=== PATIENT | male | born 1950 | race Caucasian/White ===

== ENCOUNTER → 2019-02-07 10:46 | Outpatient (CLI) | payer MEDICARE, OTHER | END | disposition home or self-care (01) | LOC: D.CT 10:46 | PROVIDERS: ATTEND Family Medicine | DX: I70.213 Atherosclerosis of native arteries of extremities with intermittent claudication, bilateral legs (principal) ==

== ENCOUNTER → 2019-07-23 10:48 | Outpatient (CLI) | payer MEDICARE, OTHER ==
--- NOTE | ~2019-07-23 | EC ---
PATIENT:DARLING BARRAGAN DATE OF SERVICE: 07/23/19 SEX: M MEDICAL RECORD: [id number] DATE OF : 46 LOCATION:[facility] AGE OF PATIENT: 68 ADMISSION DATE: 07/23/19 REFERRING PHYSICIAN: INTERPRETING PHYSICIAN: KAIN PARRISH MD ECHOCARDIOGRAM REPORT ECHO CHARGES 4 ECHO COMPLETE Date: 07/23/19 CLINICAL DIAGNOSIS: MR H/O A-FIB/HTN ECHOCARDIOGRAPHIC MEASUREMENTS (adult normal given) AC root (d.<3.7cm) 3.8 cm LV Septum d (<1.2 cm> 1.6 cm Valve Excursion 2.2 cm LV Septum (systole) 2.1 cm Left Atria (s.<4.0cm> 3.9 cm LVPW d(<1.2cm) 1.3 cm RV (d.<2.3cm) 3.0 cm LVPW (sytole) 1.9 cm LV diastole(<5.6CM) 6.1 cm MV E-F(>70mm/sec) cm LV systole 4.4 cm LVOT Diameter 2.1 cm MV exc.(>10mm) cm Est.ejection fraction (50-75%) % DOPPLER: LVIT cm/sec A cm/sec E 98.0 cm/sec LA cm/sec RVSP 34.0 mmHg LVOT 74.0 cm/sec AOP1/2T m/s Asc. Ao 100 cm/sec RVOT 54.0 cm/sec RA cm/sec PA 73.0 cm/sec AV Gradient Peak 4.0 mmHg AV Mean 2.2 mmHg AV Area 2.3 cm MV Gradient Peak 5.2 mmHg MV Mean 1.5 mmHg MV Area cm COMMENTS: OP - HC Business Solutions Architect: 1 FERNANDA MECHELLE Coconut Jelly Roller: 1 Dr. Parrish TAPE# PACS Pericardial Effusion N DATE OF SERVICE: FINDINGS: 1. Left ventricular chamber size is mildly dilated. Left ventricular systolic function is preserved at 50% to 55%. 2. Left atrium is within normal limits. Right atrium and right ventricular chamber sizes are moderately dilated. 3. Valvular structures have normal structure and motion. 4. Doppler interrogation reveals mild mitral regurgitation, mild tricuspid regurgitation, no other valvular insufficiency or stenosis. Pulmonary systolic ECHOCARDIOGRAM REPORT [id number] DARLING BARRAGAN pressure is estimated at 34 mmHg. 5. No evidence of pericardial effusion or left ventricular thrombus. TRANSINT:[id number] Voice Confirmation ID: [id number] DOCUMENT ID: [id number] KAIN PARRISH MD CC: [id number] DICTATION DATE: 07/24/19957 PICTURE ENLARGER: 07/24/19 1138 DEP CLI 07/23/19 [facility] [address] [id number]
== END | disposition home or self-care (01) ==
LOC: D.HCCECHO 10:48
PROVIDERS: ATTEND Internal Medicine Interventional Cardiology
DX: I42.9 Cardiomyopathy, unspecified (principal)

== ENCOUNTER 2020-01-08 10:47 | Inpatient (IN) | payer MEDICARE, OTHER ==
[~2020-01-08] VITALS: Ht 180.3 cm; Wt 122.5 kg
--- NOTE | ~2020-01-08 | EC ---
PATIENT:DARLING BARRAGAN DATE OF SERVICE: 01/08/20 SEX: M MEDICAL RECORD: [id number] DATE OF : [birth year] LOCATION:[facility] AGE OF PATIENT: 69 ADMISSION DATE: 01/08/20 REFERRING PHYSICIAN: INTERPRETING PHYSICIAN: LISA MAKI MD ECHOCARDIOGRAM REPORT ECHO CHARGES 4 ECHO COMPLETE Date: 01/11/20 CLINICAL DIAGNOSIS: CELLULITIS, AFIB ECHOCARDIOGRAPHIC MEASUREMENTS (adult normal given) AC root (d.<3.7cm) 2.8 cm LV Septum d (<1.2 cm> 0.7 cm Valve Excursion 1.4 cm LV Septum (systole) 1.3 cm Left Atria (s.<4.0cm> 4.2 cm LVPW d(<1.2cm) 0.9 cm RV (d.<2.3cm) 3.5 cm LVPW (sytole) 1.2 cm LV diastole(<5.6CM) 6.5 cm MV E-F(>70mm/sec) cm LV systole 5.0 cm LVOT Diameter 2.0 cm MV exc.(>10mm) cm Est.ejection fraction (50-75%) % DOPPLER: LVIT cm/sec A 79 cm/sec E cm/sec LA cm/sec RVSP 34.8 mmHg LVOT 74 cm/sec AOP1/2T m/s Asc. Ao 219 cm/sec RVOT 52 cm/sec RA cm/sec PA 74 cm/sec AV Gradient Peak 19.2 mmHg AV Mean 14.0 mmHg AV Area 0.7 cm MV Gradient Peak 4.1 mmHg MV Mean 2.4 mmHg MV Area cm COMMENTS: Dust Puller: Ilya MORENO Lithographic Artist: Emani Maki TAPE# PACS Pericardial Effusion N DATE OF SERVICE: PROCEDURE: Transthoracic echocardiogram. FINDINGS: 1. Left ventricle has areas of hyperkinesis with an overall ejection fraction of 55%. 2. The left atrium is moderately enlarged. 3. The aortic valve appears to be normal. The patient appears to be in atrial flutter. ECHOCARDIOGRAM REPORT [id number] DARLING BARRAGAN 4. Tricuspid valve has moderate tricuspid regurgitation with an RVSP of 35 mmHg. 5. Right ventricle is mildly enlarged. 6. The right atrium is mildly to moderately enlarged. 7. Pulmonic valve is grossly normal. 8. No pericardial effusion. There is no evidence of thrombus or vegetation on this echo. However, if there were other questions, transesophageal echocardiogram may be more reasonable procedure to eliminate that as a possibility. TRANSINT:[id number] Voice Confirmation ID: [id number] DOCUMENT ID: [id number] LISA MAKI MD CC: [id number] DICTATION DATE: 01/12/20 1102 COOK SOUP: 01/12/20 1554 ADM IN [facility] [address] [place] [address]
--- NOTE | 2020-01-08 11:20 | NUR ---
PT IN ROOM, SITUATED COMFORTABLY IN BED. FAMILY AT BEDSIDE. DENIES ANY NEEDS AT THIS TIME. WILL START IV AND GET PT IN A HOSPITAL GOWN. WILL CONTINUE TO MONITOR.
--- NOTE | 2020-01-08 11:51 | NUR ---
20 GAUGE IV STARTED TO THE LEFT FOREARM. NS @ 75.
--- NOTE | 2020-01-08 11:58 | NUR ---
STARTED IV ABX. RESTING COMFORTABLY. DENIES ANY NEEDS.
[2020-01-08 13:04] LABS: CALC OSMOLALITY 267 mosm/kg (275-300); CALCIUM 8.5 mg/dL (8.5-10.1); CARBON DIOXIDE 27.6 mmol/L (21.0-32.0); CHLORIDE - SERUM 98 mmol/L (98-107); GLUCOSE 122 mg/dL (74-106); HEMATOCRIT 29.5 % (42.0-54.0); HEMOGLOBIN 10.1 g/dL (13.5-17.5); MCH 32.9 pg (26.0-34.0); MCHC 34.2 g/dL (31.0-37.0); MCV 96.1 fL (80.0-100.0); PLATELET COUNT 270 10x3/uL (130-400); POTASSIUM - SERUM 3.2 mmol/L (3.5-5.1); RBC 3.07 10x6/uL (4.20-6.10); RDW 12.8 % (11.5-14.5); SODIUM 133 mmol/L (136-145); UREA NITROGEN 16 mg/dL (7-18); WBC 20.1 10x3/uL (4.8-10.8); eGFR NON AFRICAN AMERICAN 78 mL/min (90-120)
[2020-01-08 13:10] LABS: ALBUMIN 2.7 g/dL (3.4-5.0); ALKALINE PHOSPHATASE 118 U/L (30-120); ALT (SGPT) 36 U/L (10-68); PROTEIN - SERUM 7.9 g/dL (6.4-8.2)
[2020-01-08 13:31] VITALS: BP 99/76
[2020-01-08 14:21] LABS: LYMPHOCYTES 9 % (15-50); MONOCYTES 4 % (2-11); NEUTROPHILS 85 % (40-80); PLATELET ESTIMATE NORMAL
--- NOTE | 2020-01-08 14:46 | NUR ---
ADMINISTERED 40 MEQ OF POTASSIUM PER ELECTROLYTE PROTOCOL. RESECURED PT IV. SITTING UPRIGHT ON BED SIDE. REQUESTING PAIN MEDICAITON, WILL GET IN CONTACT WITH DOCTOR. DENIES ANY OTHER NEEDS. FAMILY AT BEDSIDE. WILL CONTINUE TO MONITOR.
--- NOTE | 2020-01-08 16:18 | NUR ---
ADMINISTERED STAT ORDERED MORPHINE DOSE, STARTED IV ABX. SET UP INSURANCE SOLICITOR MORPHINE. PT RESTING COMFORTABLY IN BED. FAMILY AT BEDSIDE. DENIES ANY NEEDS. BED IN LOWEST POSITION, BED RAILS X2, CALL LIGHT WITHIN REACH. WILL CONTINUE TO MONITOR.
[2020-01-08] MEDS ORDERED: LASIX40 MG PO (16:25)
[2020-01-08] MEDS ORDERED: COZAAR25 MG PO (16:26)
[2020-01-08] MEDS ORDERED: BETAPACE 120 M120 MG PO (16:26)
[2020-01-08] MEDS ORDERED: K-TAB10 MEQ PO (16:27)
[2020-01-08] MEDS ORDERED: XARELTO20 MG PO (16:28)
[2020-01-08 16:37] VITALS: BP 125/81
--- NOTE | 2020-01-08 18:38 | NUR ---
ADMINISTERD MEDICATION. RESTING COMFORTABLY IN BED. DENIES ANY NEEDS. BED IN LOWEST POSITION, BED RAILS X2, CALL LIGHT WITHIN REACH. WILL CONTINUE TO MONITOR.
[2020-01-08 20:00] VITALS: BP 119/73
[2020-01-09 04:00] VITALS: BP 114/70
[2020-01-09 05:27] LABS: BASOPHILS 0.3 % (0-2); EOSINOPHILS 0.9 % (0-7); HEMATOCRIT 34.7 % (42.0-54.0); HEMOGLOBIN 11.7 g/dL (13.5-17.5); IMMATURE GRANULOCYTES 0.5 % (0-5); MCH 32.3 pg (26.0-34.0); MCHC 33.7 g/dL (31.0-37.0); MCV 95.9 fL (80.0-100.0); MEAN PLATELET VOLUME 10.6 fL (7.4-10.4); MONOCYTES 8.7 % (2-11); NEUTROPHILS 76.6 % (40-80); RBC 3.62 10x6/uL (4.20-6.10)
[2020-01-09 05:38] LABS: PLATELET COUNT 200 10x3/uL (130-400); WBC 12.8 10x3/uL (4.8-10.8)
[2020-01-09 05:58] LABS: ALBUMIN 2.1 g/dL (3.4-5.0); ALKALINE PHOSPHATASE 87 U/L (30-120); BILIRUBIN - TOTAL 0.88 mg/dL (0.2-1.3); CALC OSMOLALITY 272 mosm/kg (275-300); CARBON DIOXIDE 28.8 mmol/L (21.0-32.0); CHLORIDE - SERUM 103 mmol/L (98-107); GLUCOSE 109 mg/dL (74-106); POTASSIUM - SERUM 3.6 mmol/L (3.5-5.1); PROTEIN - SERUM 6.1 g/dL (6.4-8.2); SODIUM 136 mmol/L (136-145); UREA NITROGEN 12 mg/dL (7-18); eGFR NON AFRICAN AMERICAN 78 mL/min (90-120)
[2020-01-09 06:05] LABS: ALT (SGPT) 25 U/L (10-68)
--- NOTE | 2020-01-09 06:43 | NUR ---
Pt resting in bed and has slept most of the night, no distress noted. Pt denies any needs at this time, call light in reach, bed in low position.
[2020-01-09 08:00] VITALS: BP 105/72
--- NOTE | 2020-01-09 09:00 | NUR ---
ALERT AND ORIETNED WITH ERRYTHEMA AND EDEMA NOTED TO RLE WITH PEDAL PULSES NOTED WITH SKIN HOT WITH SEROUS DRAIN AGE NOTED FROM LET KNEE. DILAUDID DRESS MARKER EFFECTIVE FOR PAIN MANAGEMENT. ENCOURAGED TO USE CALL LIGHT FOR ASSSIT.
[2020-01-09 12:00] VITALS: BP 93/63
--- NOTE | 2020-01-09 13:00 | NUR ---
PATIENT PREMEDICATED FOR SURGERY AND LEFT UNDER CARE OF SURGERY STAFF. EKG ON CHART. STABLE AT TIME OF DEPARTURE.
[2020-01-09 13:28] VITALS: BMI 37.6
[2020-01-09 15:07] VITALS: BP 118/91
[2020-01-09 15:26] VITALS: BP 118/61
[2020-01-09 15:59] LABS: NEUT - BF 79 %
[2020-01-09 20:00] VITALS: BP 163/107
--- NOTE | 2020-01-09 20:00 | NUR ---
PATIENT RESTING IN BED WATCHING TV. NO S/S OF ACUTE DISTRESS. NO C/O AT THIS TIME. PATIENT IS ON 2L OF O2. PATIENT HAS LEFT FOREARM IV, NORMAL SALINE @ 75 ML/HR AND MORPHINE LAP LAYER. IV IS PATENT WITHOUT REDNESS, SWELLING, OR TENDERNESS. PATIENT LEFT KNEE HAS ENDY BANDAGE AND WOUND VAC TO IT. LEFT LEG IS VERY RED AND EDEMATUS. PATIENT IS UP WITH ASSIST TO THE BATHROOM. CALL LIGHT WITHIN REACH. WILL CONTINUE TO MONITOR.
[2020-01-10] VITALS: BP 170/98
--- NOTE | 2020-01-10 01:30 | NUR ---
PATIENT IV INFILTRATED. IV TAKEN OUT AND CATHETER TIP INTACT. WILL ATTEMPT TO PLACE ANOTHER IV. CALL LIGHT WITHIN REACH. WILL CONTINUE TO MONITOR.
--- NOTE | 2020-01-10 02:00 | NUR ---
PATIENT HAS IV IN RIGHT FOREARM. IV IS PATENT WITHOUT REDNESS, SWELLING, OR TENDERNESS. CALL LIGHT WITHIN REACH. WILL CONTINUE TO MONITOR.
[2020-01-10 04:00] VITALS: BP 112/85
--- NOTE | 2020-01-10 04:05 | NUR ---
I have reviewed this patient and I concur with the Shift Assessment completed by the Licensed Practical Nurse today this shift.
[2020-01-10 06:55] LABS: BASOPHILS 0.3 % (0-2); EOSINOPHILS 0.4 % (0-7); HEMATOCRIT 30.4 % (42.0-54.0); HEMOGLOBIN 10.5 g/dL (13.5-17.5); IMMATURE GRANULOCYTES 0.3 % (0-5); LYMPHOCYTES 11.9 % (15-50); MCH 32.7 pg (26.0-34.0); MCHC 34.5 g/dL (31.0-37.0); MCV 94.7 fL (80.0-100.0); MEAN PLATELET VOLUME 10.6 fL (7.4-10.4); MONOCYTES 6.3 % (2-11); NEUTROPHILS 80.8 % (40-80); PLATELET COUNT 195 10x3/uL (130-400); RBC 3.21 10x6/uL (4.20-6.10); RDW 12.5 % (11.5-14.5); WBC 11.3 10x3/uL (4.8-10.8)
[2020-01-10 07:15] LABS: ALBUMIN 1.6 g/dL (3.4-5.0); BILIRUBIN - TOTAL 0.55 mg/dL (0.2-1.3); POTASSIUM - SERUM 3.2 mmol/L (3.5-5.1)
[2020-01-10 07:29] LABS: C-REACTIVE PROTEIN 20.8 mg/dL (0.0-0.9)
[2020-01-10 07:36] LABS: ANION GAP 11.9 mmol/L (8-16); CARBON DIOXIDE 21.3 mmol/L (21.0-32.0); CREATININE - SERUM 1.5 mg/dL (0.6-1.3)
[2020-01-10 07:38] LABS: CALCIUM 6.6 mg/dL (8.5-10.1)
[2020-01-10 08:08] VITALS: BP 135/93
[2020-01-10 12:28] VITALS: Ht 180.3 cm; Wt 122.5 kg
[2020-01-10 13:17] VITALS: BP 138/77
[2020-01-10 16:10] VITALS: BP 108/68
--- NOTE | 2020-01-10 20:00 | NUR ---
PATIENT RESTING IN BED WATCHING TV. NO S/S OF ACUTE DISTRESS. NO C/O AT THIS TIME. PATIENT HAS IV TO RIGHT FOREARM, NORMAL SALINE @ 75 ML/HR. IV IS PATENT WITHOUT REDNESS, SWELLING, OR TENDERNESS. PATIENT IS ON TELEMETRY: 105 UNCONTROLLED A-FIB. PATIENT LEFT KNEE INCISION WITH WOUND VAC ATTCHED. WOUND VAC IS STILL FUNCTIONING, BUT THERE SEEMS TO BE PLACED WHERE IT IS LEAKING AROUND THE WOUND VAC. CALL LIGHT WITHIN REACH. WILL CONTINUE TO MONITOR.
--- NOTE | 2020-01-10 22:40 | NUR ---
I JUST CHANGED PATIENT'S DRESSING AROUND WOUND VAC. PATIENT HAD SOAKED THROUGH 3 ABDOMNIAL PADS, CURLEX, AND THE X2 ENDY BANDAGES AOURND THAT LEFT KNEE. I CLEANED UP AROUND THE WOUND VAC, RE-APPLIED THE ABDOMINAL PAD WITH ENDY WRAPS. I THEN PAGED MITCHELL PEÑA, AND HE TOLD ME TO CALL THE ORTHO DOCTOR CONTRACT WRITER. I THEN PAGED DR. FROST. CALL LIGHT WITHIN REACH. WILL CONTINUE TO MONITOR.
--- NOTE | 2020-01-10 22:44 | NUR ---
CONTACTED DR. FROST ABOUT THE BLEEDING THAT THE PATIENT WAS EXPERIENCING AND THAT HE SOAKED THROUGH 3 ABDOMINAL PADS AND THE WRAPPING AROUND. SANTOSH EXPLAINED THAT THIS WAS THE REASON BEHIND HIM GOING TO SURGERY AGAIN TOMORROW MORNING. DR. FROST INSTRUCTED TO JUST CLEAN IT UP AND REINFORCE THE DRESSING. I INFORMED HIM THAT I HAD AND WOULD KEEP AN EYE ON IT.
[2020-01-11 04:00] VITALS: BP 109/77
[2020-01-11 06:47] LABS: BASOPHILS 0.4 % (0-2); EOSINOPHILS 3.1 % (0-7); HEMATOCRIT 31.6 % (42.0-54.0); HEMOGLOBIN 10.5 g/dL (13.5-17.5); IMMATURE GRANULOCYTES 0.5 % (0-5); LYMPHOCYTES 18.7 % (15-50); MCH 32.1 pg (26.0-34.0); MCHC 33.2 g/dL (31.0-37.0); MCV 96.6 fL (80.0-100.0); MEAN PLATELET VOLUME 10.6 fL (7.4-10.4); MONOCYTES 9.3 % (2-11); PLATELET COUNT 227 10x3/uL (130-400); RBC 3.27 10x6/uL (4.20-6.10)
--- NOTE | 2020-01-11 08:00 | NUR ---
ALERT AND ORIENTED X4. DRESSING INTACT TO LEFT KNEE WITH WOUND VAC INTACT. EDEMA 3+ NOTED TO LLE WITH PEDAL PULSES NOTED WITH SKIN W/D WITH DECREASED ERRYTHEMA. PATIENT LEFT WITH SURGICAL STAFF FOR PROCEDURE AND STABLE.
[2020-01-11 09:17] LABS: ALBUMIN 1.9 g/dL (3.4-5.0); ANION GAP 15.9 mmol/L (8-16); BILIRUBIN - TOTAL 0.64 mg/dL (0.2-1.3); CALCIUM 7.7 mg/dL (8.5-10.1); CARBON DIOXIDE 20.2 mmol/L (21.0-32.0); POTASSIUM - SERUM 4.1 mmol/L (3.5-5.1); PROTEIN - SERUM 5.5 g/dL (6.4-8.2)
[2020-01-11 09:19] LABS: CREATININE - SERUM 2.9 mg/dL (0.6-1.3)
--- NOTE | 2020-01-11 10:39 | OP ---
PATIENT NAME: DARLING LOPEZ MEDICAL RECORD: [id number] :46 LOCATION:[facility] ADMISSION DATE:01/08/20 SURGEON: AMOR FROST MD DATE OF OPERATION: 01/09/2020 PREOPERATIVE DIAGNOSIS: Septic prepatellar bursitis, left knee. POSTOPERATIVE DIAGNOSIS: Septic prepatellar bursitis, left knee. PROCEDURE PERFORMED: 1. Incision and debridement of left knee (skin, subcutaneous tissue, fascia). 2. Left knee aspiration. 3. Wound VAC placement, left knee (less than 50 cm2). INDICATIONS FOR PROCEDURE: Mr. Lopez is a 69-year-old male who presented to the emergency department yesterday from his primary care physician's clinic with severe cellulitis of the left knee. He was admitted, started on IV antibiotics. Doppler of the leg was performed and was negative for DVT. Orthopedics was consulted and he was noted to have severe redness and erythema around the left knee with a draining wound over the anterior patella consistent with septic prepatellar bursitis. I talked with him about this condition and need for surgical debridement. Risks, benefits, and alternatives of surgery were discussed with the patient and consent was obtained. DESCRIPTION OF PROCEDURE: The patient was met in the holding area where his identity and confirmation of procedure was performed. The left lower extremity was marked. He was taken to the operating room where he was placed supine on the operating table and anesthesia was administered. Tourniquet was applied to left thigh and left leg was prepped and draped in a sterile fashion. The patient was on scheduled antibiotics, therefore did not receive any immediately preop. A time-out was performed before initiating the case. On initiation of the case, the leg was gravity exsanguinated and the tourniquet was raised. Total tourniquet time was 29 minutes. An incision was made over the anterior knee through the skin and subcutaneous tissues at which point a large amount of purulent debris was expressed from the prepatellar bursa. Cultures of this wound were obtained. I then changed gloves and performed a knee aspiration from the superior medial patella region. I aspirated approximately 5 mL of straw-colored fluid. There did not appear to be any gross contamination of this fluid. This fluid was sent separately for cell count and cultures. We then continued with our surgery for I&D. Rongeur was used to debride the tissue from within the bursa and the infection appeared to be contained to the bursa area itself. Necrotic tissue and fatty tissue was debrided. It was then irrigated with 3 L of saline. There was some damage to the skin over this area as well with some near full-thickness involvement. We will just need to monitor this to see how it progresses. Once there is no more evidence of gross contamination, a wound VAC was placed to wound measuring 9.5 x 3.5 cm. Wound VAC was placed. Compression was confirmed in the operating room. This was then covered with a sterile dressing. Tourniquet was let down. The patient was turned back over to anesthesia where he was awakened, extubated, and taken to recovery room in stable condition. POSTOPERATIVE PLAN: The patient is going to return to the floor for continued postoperative care. We will continue with IV antibiotics and follow his culture results. He also has blood cultures pending. He is to keep the leg elevated, try to stay off of it as much as possible. Plan to return to the operating room OPERATIVE REPORT [id number] DARLING LOPEZ in the next 2-3 days for repeat I&D with possible culture versus wound closure. ANESTHESIA: General. COMPLICATIONS: None. ESTIMATED BLOOD LOSS: 10 mL. NTS:[id number] Voice Confirmation ID: [id number] DOCUMENT ID: [id number] AMOR FROST MD at 1039 CC: [id number] DICTATION DATE: 01/09/20 1428 SALES AND MARKETING VICE PRESIDENT: 01/09/202025 ADM IN [address] [facility] [id number] [place] [address]
[2020-01-11 10:41] VITALS: BP 135/76
[2020-01-11 17:08] VITALS: BP 120/79
--- NOTE | 2020-01-11 19:50 | NUR ---
PATIENT RESTING IN BED WITH NO S/S OF DISTRESS. ASSISTED PATIENT TO RR. PATIENT DENIES OTHER NEEDS. WILL CONTINUE TO MONITOR.
[2020-01-11 20:00] VITALS: BP 113/76
[2020-01-12] VITALS: BP 107/72
[2020-01-12 04:00] VITALS: BP 143/99
[2020-01-12 07:10] LABS: BASOPHILS 0.2 % (0-2); EOSINOPHILS 0.1 % (0-7); HEMATOCRIT 29.2 % (42.0-54.0); HEMOGLOBIN 9.7 g/dL (13.5-17.5); IMMATURE GRANULOCYTES 0.3 % (0-5); LYMPHOCYTES 12.6 % (15-50); MCH 31.8 pg (26.0-34.0); MCHC 33.2 g/dL (31.0-37.0); MCV 95.7 fL (80.0-100.0); MEAN PLATELET VOLUME 10.4 fL (7.4-10.4); MONOCYTES 6.9 % (2-11); NEUTROPHILS 79.9 % (40-80); PLATELET COUNT 234 10x3/uL (130-400); RBC 3.05 10x6/uL (4.20-6.10); RDW 12.9 % (11.5-14.5); WBC 12.2 10x3/uL (4.8-10.8)
[2020-01-12 07:41] LABS: ALBUMIN 1.7 g/dL (3.4-5.0); ANION GAP 15.4 mmol/L (8-16); BILIRUBIN - TOTAL 0.41 mg/dL (0.2-1.3); C-REACTIVE PROTEIN 9.1 mg/dL (0.0-0.9); CALCIUM 7.7 mg/dL (8.5-10.1); CARBON DIOXIDE 21.7 mmol/L (21.0-32.0); CREATININE - SERUM 3.1 mg/dL (0.6-1.3); POTASSIUM - SERUM 4.1 mmol/L (3.5-5.1); PROTEIN - SERUM 5.6 g/dL (6.4-8.2); VANCOMYCIN - TROUGH 24.7 ug/mL (10.0-20.0)
[2020-01-12 09:45] VITALS: BP 99/60
[2020-01-12 12:11] VITALS: BP 93/55
[2020-01-12 17:32] VITALS: BP 101/73
[2020-01-12 20:26] VITALS: BP 96/64
[2020-01-13 00:16] VITALS: BP 125/71
[2020-01-13 04:30] VITALS: BP 119/74
[2020-01-13 06:49] LABS: BASOPHILS 0.3 % (0-2); EOSINOPHILS 1.4 % (0-7); HEMATOCRIT 28.6 % (42.0-54.0); HEMOGLOBIN 9.6 g/dL (13.5-17.5); IMMATURE GRANULOCYTES 0.4 % (0-5); LYMPHOCYTES 13.6 % (15-50); MCH 32.4 pg (26.0-34.0); MCHC 33.6 g/dL (31.0-37.0); MCV 96.6 fL (80.0-100.0); MEAN PLATELET VOLUME 10.4 fL (7.4-10.4); MONOCYTES 8.7 % (2-11); NEUTROPHILS 75.6 % (40-80); PLATELET COUNT 221 10x3/uL (130-400); RBC 2.96 10x6/uL (4.20-6.10); WBC 10.6 10x3/uL (4.8-10.8)
[2020-01-13 07:41] LABS: ALBUMIN 1.9 g/dL (3.4-5.0); BILIRUBIN - TOTAL 0.37 mg/dL (0.2-1.3); CALCIUM 7.8 mg/dL (8.5-10.1); CARBON DIOXIDE 20.7 mmol/L (21.0-32.0); CREATININE - SERUM 3.2 mg/dL (0.6-1.3); POTASSIUM - SERUM 3.7 mmol/L (3.5-5.1); PROTEIN - SERUM 5.8 g/dL (6.4-8.2)
[2020-01-13 08:54] VITALS: BP 124/81
--- NOTE | 2020-01-13 10:00 | NUR ---
PATIENT EDI PROGRAMMER ANALYST LIGHT. UP TO BATHROOM WITH ASSISTANCE, BACK TO BED. LEG ELEVATED PER ORDERS. DENIES PAIN OR FURTHER NEEDS. BED LOW POSITION, CALL LIGHT IN REACH, WILL CONTINUE TO MONITOR.
[2020-01-13 13:05] VITALS: BP 110/74
--- NOTE | 2020-01-13 14:20 | MORECARE ---
CASE MANAGEMENT DISCHARGE SUMMARY PATIENT: DARLING BARRAGAN UNIT: [id number] ADM DATE: 01/08/20 AGE: 69 : 48 SEX: M ROOM/BED: D.2237 AUTHOR: HARIS HUFF PHYSICIAN: REFERRING PHYSICIAN: GUILLERMINA CABAN DO DATE OF SERVICE: 01/13/20 Discharge Plan Patient Name: DARLING BARRAGAN Facility: [facility]:[place] : 1950 Planned Disposition: Home Anticipated Discharge Date: Discharge Date: Expected LOS: Initial Reviewer: [email or web address] Initial Review Date: 01/08/2020 Generated: 01/13/20 3:19 pm Comments DCP- Discharge Planning Updated by [email or web address]: Marisela Keating on 01/13/20 1:[address] Patient Name: DARLING BARRAGAN Admission Status: Elective Accout number: [id number] Admission Date: 01-08-2020 : 1950 Admission Diagnosis:OTHER INFECTIVE BURSITIS, LEFT KNEE Attending: GUILLERMINA CABAN Current LOS: 5 Anticipated DC Date: Planned Disposition: Home Primary Insurance: MEDICARE A & B Discharge Planning Comments: CM met with patient at bedside after explaining CM role and obtaining verbal consent. CM discussed availability / needs of home health, REHAB and medical equipment. PATIENT DENIES ANY DISCHARGE NEEDS AT THIS TIME. IF PATIENT NEEDS TO HAVE HH THEN I WILL SET IT UP CLOSER TO TIME FOR DC. CM TO FOLLOW AND ASSIST NEEDED. Interlocker: Marisela Keating DCPIA - Discharge Planning Initial Assessment Updated by [email or web address]: Marisela Keating on 01/13/20 2:12 pm * Is the patient Alert and Oriented? Yes * PCP BURDICK * ADLs Independent * Equipment None * Verbal permission to speak to the caregivers and representatives has been obtained from the patient. No * Community resources currently utilized None * Additional services required to return to the preadmission environment? No * Can the patient safely return to the preadmission environment? Yes * Has this patient been hospitalized within the prior 30 days at any hospital? No Patient Name: DARLING BARRAGAN Page [phone] at 1420 All edits/amendments must be made on the electronic document DICTATION DATE: 01/13/201418 ORNAMENTAL MACHINE OPERATOR: CRIS 01/13/201418 RPT#: [id number] DC DATE: STATUS: ADM IN [facility] [address] [place] [address] END OF REPORT
[2020-01-13 17:37] VITALS: BP 124/79
[2020-01-13 22:03] VITALS: BP 112/73
[2020-01-14] VITALS: BP 127/84
[2020-01-14 04:00] VITALS: BP 129/75
[2020-01-14 07:39] LABS: ANION GAP 11.8 mmol/L (8-16); BASOPHILS 0.2 % (0-2); BILIRUBIN - TOTAL 0.33 mg/dL (0.2-1.3); CALCIUM 7.9 mg/dL (8.5-10.1); CARBON DIOXIDE 22.2 mmol/L (21.0-32.0); CREATININE - SERUM 3.3 mg/dL (0.6-1.3); EOSINOPHILS 2.2 % (0-7); HEMATOCRIT 29.3 % (42.0-54.0); HEMOGLOBIN 9.7 g/dL (13.5-17.5); IMMATURE GRANULOCYTES 0.5 % (0-5); LYMPHOCYTES 11.9 % (15-50); MCH 31.9 pg (26.0-34.0); MCHC 33.1 g/dL (31.0-37.0); MCV 96.4 fL (80.0-100.0); MEAN PLATELET VOLUME 10.3 fL (7.4-10.4); MONOCYTES 7.9 % (2-11); NEUTROPHILS 77.3 % (40-80); PLATELET COUNT 229 10x3/uL (130-400); RBC 3.04 10x6/uL (4.20-6.10); RDW 12.9 % (11.5-14.5); VANCOMYCIN - RANDOM 18.9 ug/mL (10.0-20.0); WBC 11.9 10x3/uL (4.8-10.8)
[2020-01-14 11:03] VITALS: BP 134/65
--- NOTE | 2020-01-14 13:54 | NUR ---
Nutrition follow-up: Diet: ADA consistent CHO PO intake ~50% of meals Labs reviewed +BM Wound vac to knee Pt reports some nausea today Will continue to provide food choices and offer nutritional supplements. RDN following.
--- NOTE | 2020-01-14 14:19 | OP ---
PATIENT NAME: DARLING LOPEZ MEDICAL RECORD: [id number] :46 LOCATION:[facility] ADMISSION DATE:01/08/20 SURGEON: AMOR FROST MD DATE OF OPERATION: 01/11/2020 PREOPERATIVE DIAGNOSIS: Septic prepatellar bursitis, left knee. POSTOPERATIVE DIAGNOSIS: Septic prepatellar bursitis, left knee. PROCEDURE PERFORMED: 1. Irrigation and debridement of left knee (skin, subcutaneous tissue and fascia). 2. Delayed primary closure, left knee wound (6.5 cm). 3. Application of incisional wound VAC, left knee (less than 50 cm-squared). INDICATIONS FOR THE PROCEDURE: Mr. Lopez is a 69-year-old male with history of septic prepatellar bursitis of left knee. He was taken to the operating room on for I&D and returns today for repeat I&D with VAC change versus wound closure. His inflammatory markers and white blood cell count have been trending down and the swelling in his legs seems to be improving. Cultures are still no growth to date. The VAC has had a lot of bloody drainage from around the edges and has lost its seal at this point. I talked to him and his family about the procedure and associated risks. The risks, benefits, alternatives of surgery were discussed with the patient include but not limited to pain, infection, bleeding, damage to surrounding structures and potential need for further surgery. All questions were answered and consent was obtained. DESCRIPTION OF PROCEDURE: The patient was met in the holding area where his identity and confirmation of procedure was performed. Left lower extremity was marked. He was taken to the operating room where he was placed supine on the operating table and anesthesia was administered. Tourniquet was applied to left thigh and left leg was prepped and draped in a sterile fashion. The patient is on scheduled antibiotics; therefore, did not receive any immediately preop. A timeout was performed for initiating the case. With initiation of the case, leg was gravity exsanguinated and the tourniquet was raised. Total tourniquet time was 12 minutes. The wound was explored, noted to be very hyperemic and vascular. There did not appear to be any evidence of gross purulence or further infection. There was some damage to the skin edges right at the inferior portion of the patella from the infection itself. These skin edges were excised to good tissue. The bursa was irrigated thoroughly with saline. Army-Oceana was used to elevate the tissues and Aquamantys was then used to provide any hemostasis to any bleeding areas. I feel like we were able to obtain good control. The tourniquet was let down during this process. Total tourniquet time was approximately 12 minutes. Once we were pleased with our hemostasis and debridement, we then proceeded with wound closure. Approximately, 2 cm inferior and 4.5 cm superior were able to be closed, leaving a central wound measuring 3 x 1.[address] some sutures in this area, but it was under too much tension for the skin to tolerate, they were therefore removed. A piece of VAC sponge was placed in the central area of the wound and then the remainder of the incision was covered with an incisional wound VAC. Wound VAC was placed and compression was confirmed in the operating room. The knee was then covered with a sterile dressing, placed into a knee immobilizer. He was turned back over to anesthesia where he was awakened, extubated, and taken to recovery room in stable condition. OPERATIVE REPORT [id number] DARLING LOPEZ POSTOPERATIVE PLAN: The patient is going to return to the floor for continued postoperative care. Continue his IV antibiotics and follow initial wound cultures. He needs to keep the knee brace on at all times with no knee flexion. He can weightbear as tolerated in the brace. I also encouraged him to elevate the leg to assist with swelling and a GUILLERMINA hose was placed to assist with this as well. He will hopefully be able to discharge with a wound VAC or dressing changes and avoid any further surgery if possible. Need to follow his culture results for final analysis before making any of those plans. COMPLICATIONS: None. ANESTHESIA: General. ESTIMATED BLOOD LOSS: 25 mL. TRANSINT:[id number] Voice Confirmation ID: [id number] DOCUMENT ID: [id number] AMOR FROST MD at 1419 CC: [id number] DICTATION DATE: 01/11/20 1038 UNDERCOVER AGENT: 01/11/20 1552 ADM IN [facility] [address] [place] [address]
[2020-01-14 15:00] VITALS: BP 143/91
[2020-01-14 15:15] VITALS: BP 140/80
[2020-01-14 20:00] VITALS: BP 128/81
--- NOTE | 2020-01-14 23:00 | NUR ---
REPORT GIVEN BY MEGAN JASON
--- NOTE | 2020-01-15 00:45 | NUR ---
PT IS IN BED WITH NO C/O. HE STATES HE HAS NO PAIN. HE HAS A RIGIHT FOREARM IV. HE HAS A DILAUDID UPHOLSTERY PARTS SORTER WHICH HE RARELY USES. HE SLEEPS WITH A CPAP IN [facility]. HE HAS A BORDEN CATHETER.HIS LEFET LEG HAS GUILLERMINA HOSE IN PLACE AND AN ACAE WRAP. HIS RIGHT LEG IS HOOKED UP TO A SCD. HIS IV TUBING WAS CHANGED. CALL LIGHT CLOSE TO PT.
[2020-01-15 04:00] VITALS: BP 143/92
--- NOTE | 2020-01-15 04:00 | NUR ---
BORDEN EMPTIED. PT HAS NO C/O
--- NOTE | 2020-01-15 06:00 | NUR ---
MEDICATION GIVEN. PUT IMMOLIZER ON HIS LEFT LEG.
[2020-01-15 07:38] LABS: BASOPHILS 0.3 % (0-2); EOSINOPHILS 1.8 % (0-7); HEMATOCRIT 32.5 % (42.0-54.0); HEMOGLOBIN 10.9 g/dL (13.5-17.5); IMMATURE GRANULOCYTES 0.7 % (0-5); LYMPHOCYTES 12.6 % (15-50); MCH 32.1 pg (26.0-34.0); MCHC 33.5 g/dL (31.0-37.0); MCV 95.6 fL (80.0-100.0); MEAN PLATELET VOLUME 10.2 fL (7.4-10.4); MONOCYTES 7.8 % (2-11); NEUTROPHILS 76.8 % (40-80); RDW 12.9 % (11.5-14.5); WBC 13.7 10x3/uL (4.8-10.8)
[2020-01-15 07:39] LABS: PLATELET COUNT 290 10x3/uL (130-400)
[2020-01-15 08:37] LABS: ANION GAP 13.7 mmol/L (8-16); C-REACTIVE PROTEIN 4.8 mg/dL (0.0-0.9); CALCIUM 8.2 mg/dL (8.5-10.1); CARBON DIOXIDE 21.1 mmol/L (21.0-32.0); CREATININE - SERUM 3.1 mg/dL (0.6-1.3); PHOSPHOROUS 4.2 mg/dL (2.5-4.9); POTASSIUM - SERUM 3.8 mmol/L (3.5-5.1)
[2020-01-15 09:00] LABS: VANCOMYCIN - RANDOM 14.4 ug/mL (10.0-20.0)
[2020-01-15 09:58] VITALS: BP 126/85
[2020-01-15 13:33] VITALS: BP 134/90
[2020-01-15 18:25] VITALS: BP 152/75
[2020-01-15 20:00] VITALS: BP 142/99
[2020-01-16 04:00] VITALS: BP 136/85
[2020-01-16 05:38] LABS: BASOPHILS 0.3 % (0-2); EOSINOPHILS 2.4 % (0-7); HEMATOCRIT 30.2 % (42.0-54.0); HEMOGLOBIN 10.2 g/dL (13.5-17.5); IMMATURE GRANULOCYTES 0.6 % (0-5); LYMPHOCYTES 16.2 % (15-50); MCH 32.2 pg (26.0-34.0); MCHC 33.8 g/dL (31.0-37.0); MCV 95.3 fL (80.0-100.0); MEAN PLATELET VOLUME 10.2 fL (7.4-10.4); MONOCYTES 8.7 % (2-11); NEUTROPHILS 71.8 % (40-80); PLATELET COUNT 288 10x3/uL (130-400); RBC 3.17 10x6/uL (4.20-6.10); RDW 13.1 % (11.5-14.5); WBC 12.1 10x3/uL (4.8-10.8)
[2020-01-16 06:04] LABS: CALCIUM 8.4 mg/dL (8.5-10.1); CARBON DIOXIDE 23.8 mmol/L (21.0-32.0); CREATININE - SERUM 2.8 mg/dL (0.6-1.3); PHOSPHOROUS 4.3 mg/dL (2.5-4.9); POTASSIUM - SERUM 3.8 mmol/L (3.5-5.1)
[2020-01-16 08:40] VITALS: BP 127/89
[2020-01-16 12:25] VITALS: BP 137/87
[2020-01-16 16:38] VITALS: BP 142/98
[2020-01-16 20:00] VITALS: BP 149/99
--- NOTE | 2020-01-16 20:00 | NUR ---
PATIENT RESTING IN BED WATCHING TV. NO S/S OF ACUTE DISTRESS. NO C/O AT THIS TIME. PATEINT HAS A RIGHT FOREARM, SALINE LOC. IV IS PATENT WITHOUT REDNESS, SWELLING, OR TENDERNESS. PATIENT HAS LEFT KNEE WRAPPED, DRESSING C/D/I, AND A BRACE ON. PATIENT HAS A BORDEN AND IS ON BLADDER TRAINING. CALL LIGHT WITHIN REACH. WILL CONTINUE TO MONITOR.
[2020-01-17] VITALS: BP 144/89
--- NOTE | 2020-01-17 03:29 | NUR ---
I have reviewed this patient and I concur with the Shift Assessment completed by the Licensed Practical Nurse today this shift.
[2020-01-17 04:00] VITALS: BP 140/78
[2020-01-17 06:39] LABS: BASOPHILS 0.4 % (0-2); EOSINOPHILS 2.2 % (0-7); HEMATOCRIT 30.8 % (42.0-54.0); HEMOGLOBIN 10.2 g/dL (13.5-17.5); IMMATURE GRANULOCYTES 0.5 % (0-5); LYMPHOCYTES 14.5 % (15-50); MCH 31.9 pg (26.0-34.0); MCHC 33.1 g/dL (31.0-37.0); MCV 96.3 fL (80.0-100.0); MEAN PLATELET VOLUME 10.3 fL (7.4-10.4); MONOCYTES 9.9 % (2-11); NEUTROPHILS 72.5 % (40-80); PLATELET COUNT 298 10x3/uL (130-400); RDW 13.4 % (11.5-14.5); WBC 11.4 10x3/uL (4.8-10.8)
[2020-01-17 07:09] LABS: ANION GAP 12.5 mmol/L (8-16); CALCIUM 8.4 mg/dL (8.5-10.1); CARBON DIOXIDE 24.4 mmol/L (21.0-32.0); CREATININE - SERUM 2.7 mg/dL (0.6-1.3); PHOSPHOROUS 4.4 mg/dL (2.5-4.9); POTASSIUM - SERUM 3.9 mmol/L (3.5-5.1)
[2020-01-17 09:16] VITALS: BP 152/80
--- NOTE | 2020-01-17 10:42 | NUR ---
HE IS ALERT TALKING. HIS LEFT KNEE HAS A DRESSING ON IT WITH AN IMMOBOLIZER ON IT. THE CALL LIGHT IS WTIHIN [employer].
--- NOTE | 2020-01-17 12:50 | MORECARE ---
CASE MANAGEMENT DISCHARGE SUMMARY PATIENT: DARLING BARRAGAN UNIT: [id number] ADM DATE: 01/08/20 AGE: 69 : 48 SEX: M ROOM/BED: D.2237 AUTHOR: REFUGIO,DOC PHYSICIAN: REFERRING PHYSICIAN: GUILLERMINA CABAN DO DATE OF SERVICE: 01/17/20 Discharge Plan Patient Name: DARLING BARRAGAN Facility: [facility]:[place] : 1950 Planned Disposition: Home Anticipated Discharge Date: Discharge Date: Expected LOS: Initial Reviewer: [email or web address] Initial Review Date: 01/08/2020 Generated: 01/17/20 1:49 pm DCP- Discharge Planning Updated by [email or web address]: Marisela Keating on 01/13/20 1:[address] Patient Name: DARLING BARRAGAN Admission Status: Elective Accout number: [id number] Admission Date: 01-08-2020 : 1950 Admission Diagnosis:OTHER INFECTIVE BURSITIS, LEFT KNEE Attending: GUILLERMINA CABAN Current LOS: 5 Anticipated DC Date: Planned Disposition: Home Primary Insurance: MEDICARE A & B Discharge Planning Comments: CM met with patient at bedside after explaining CM role and obtaining verbal consent. CM discussed availability / needs of home health, REHAB and medical equipment. PATIENT DENIES ANY DISCHARGE NEEDS AT THIS TIME. IF PATIENT NEEDS TO HAVE HH THEN I WILL SET IT UP CLOSER TO TIME FOR DC. CM TO FOLLOW AND ASSIST NEEDED. [employer] Scm Consultant: Marisela Keating DCPIA - Discharge Planning Initial Assessment Updated by [email or web address]: Marisela Keating on 01/13/20 2:12 pm * Is the patient Alert and Oriented? Yes * PCP BURDICK * ADLs Independent * Equipment None * Verbal permission to speak to the caregivers and representatives has been obtained from the patient. No * Community resources currently utilized None * Additional services required to return to the preadmission environment? No * Can the patient safely return to the preadmission environment? Yes * Has this patient been hospitalized within the prior 30 days at any hospital? No External Providers [facility] Next Contact Date: Service Request Date: Service Type: Resolution: Reviewer: Comments: Last DP export: 01/13/20 1:20 p Patient Name: DARLING BARRAGAN Page [phone] at 1250 All edits/amendments must be made on the electronic document DICTATION DATE: 01/17/209 BARREL FILLER: CRIS 01/17/209 RPT#: [id number] DC DATE: STATUS: ADM IN [facility] [address] [place] [address] END OF REPORT
[2020-01-17 12:57] VITALS: BP 143/92
--- NOTE | 2020-01-17 12:58 | MORECARE ---
CASE MANAGEMENT DISCHARGE SUMMARY PATIENT: DARLING BARRAGAN UNIT: [id number] ADM DATE: 01/08/20 AGE: 69 : 48 SEX: M ROOM/BED: D.2237 AUTHOR: REFUGIODOC PHYSICIAN: REFERRING PHYSICIAN: GUILLERMINA CABAN DO DATE OF SERVICE: 01/17/20 Discharge Plan Patient Name: DARLING BARRAGAN Facility: [facility]:[place] : 1950 Planned Disposition: Home Anticipated Discharge Date: Discharge Date: Expected LOS: Initial Reviewer: [id number] Initial Review Date: 01/08/2020 Generated: 01/17/20 1:57 pm Comments DCP- Discharge Planning Updated by [id number]: Marisela Keating on 01/17/20 11:[address] Patient Name: DARLING BARRAGAN Admission Status: Elective Accout number: [id number] Admission Date: 01-08-2020 : 1950 Admission Diagnosis:OTHER INFECTIVE BURSITIS, LEFT KNEE Attending: GUILLERMINA CABAN Current LOS: 9 Anticipated DC Date: Planned Disposition: Home Primary Insurance: MEDICARE A & B Discharge Planning Comments: CM MET WITH PATIENT AND FAMILY, ANTICIPATE DC TOMORROW. JUAQUIN AND IMM SIGNED. FAXED REFERRAL TO [facility] , THEY WILL GET PATIENT ON SCHEDULE FOR MONDAY. PLEASE FAX DC TO [facility]. [facility] BROCHURE GIVEN TO PATIENT WITH PHONE NUMBER LISTED. CM TO FOLLOW AND ASSIST NEEDED. Bush Regenerator: Marisela Keating DCP- Discharge Planning Updated by [email or web address]: Marisela Keating on 01/13/20 1:[address] Patient Name: DARLING BARRAGAN Admission Status: Elective Accout number: [id number] Admission Date: 01-08-2020 : 1950 Admission Diagnosis:OTHER INFECTIVE BURSITIS, LEFT KNEE Attending: GUILLERMINA CABAN Current LOS: 5 Anticipated DC Date: Planned Disposition: Home Primary Insurance: MEDICARE A & B Discharge Planning Comments: CM met with patient at bedside after explaining CM role and obtaining verbal consent. CM discussed availability / needs of home health, REHAB and medical equipment. PATIENT DENIES ANY DISCHARGE NEEDS AT THIS TIME. IF PATIENT NEEDS TO HAVE HH THEN I WILL SET IT UP CLOSER TO TIME FOR DC. CM TO FOLLOW AND ASSIST NEEDED. Bush Regenerator: Marisela Keating DCPIA - Discharge Planning Initial Assessment Updated by [email or web address]: Marisela Keating on 01/13/20 2:12 pm * Is the patient Alert and Oriented? Yes * PCP BURDICK * ADLs Independent * Equipment None * Verbal permission to speak to the caregivers and representatives has been obtained from the patient. No * Community resources currently utilized None * Additional services required to return to the preadmission environment? No * Can the patient safely return to the preadmission environment? Yes * Has this patient been hospitalized within the prior 30 days at any hospital? No Coverage Notice Reviewer: [id number] Ismhael Keating Notice Issued Date-Time: 01/17/2020 12:54 Notice Type: IM Discharge Notice Notice Delivered To: Patient Relationship to Patient: District Loss Prevention Manager Name: Delivery Method: HAND - Hand Delivered Rayna Days: Prior Verbal Notification: Recipient Understood Notice: Yes Recipient Signature: Yes Med Rec Note Co-signed by Attending: Coverage Notice Comment: Reviewer: [email or web address] Ishmael Keating Notice Issued Date-Time: 01/17/2020 12:54 Notice Type: Patient Choice Letter Notice Delivered To: Patient Relationship to Patient: District Loss Prevention Manager Name: Delivery Method: HAND - Hand Delivered Rayna Days: Prior Verbal Notification: Recipient Understood Notice: Yes Recipient Signature: Yes Med Rec Note Co-signed by Attending: Coverage Notice Comment: JUAQUIN GRIGGS Last DP export: 01/17/20 11:50 a Patient Name: DARLING BARRAGAN Page [phone] at 1258 All edits/amendments must be made on the electronic document DICTATION DATE: 01/17/20 1257 TELECOMMUNICATION ENGINEER: CRIS 01/17/20 1257 RPT#: [id number] DC DATE: STATUS: ADM IN [facility] [address] [place] [address] END OF REPORT
--- NOTE | 2020-01-17 13:13 | NUR ---
NUTRITION FOLLOW UP: COMMENTS: Patient has been experiencing good po intake. Wound vac has been removed. DIET: Diabetic Diet SUPPLEMENT: Nepro PO INTAKE: 52% avg for last 9 meals WEIGHT: 01/08- 270 lbs BM: x 1 on 01/12 SIG LABS: BUN- 20(H), Cr-2.7(H), GFR-25(L), Ca-8.4(L), Albumin-2.0(L) SIG MEDS: Nephro-emily, Colace, Lovenox, Zofran, Protonix, KCl RECOMMENDATIONS: -Continue Diabetic Diet as tolerated -Continue Nepro as tolerated RD to continue to follow and monitor patient DHS
[2020-01-17 17:06] VITALS: BP 140/96
--- NOTE | 2020-01-17 18:32 | NUR ---
POST VOID 74 CC, HE VOIDED 300 CC.
[2020-01-17 20:00] VITALS: BP 148/92
--- NOTE | 2020-01-17 20:00 | NUR ---
PATIENT RESTING IN BED AND TALKING ON THE PHONE. NO S/S OF ACUTE DISTRESS. NO C/O AT THIS TIME. PATIENT HAS IMOBILIZER ON LEFT KNEE WITH DRESSING. PATIENT HAS RIGHT WRIST IV. IV IS PATENT WITHOUT REDNESS, SWELLING, OR TENDERNESS. PATIENT HAS TELEMETRY ON. PATIENT IS ON CONTACT PRECAUTIONS FOR MRSA. CALL LIGHT ERNO GERMAN. WILL CONTINUE TO MONITOR.
--- NOTE | 2020-01-18 02:54 | NUR ---
I have reviewed this patient and I concur with the Shift Assessment completed by the Licensed Practical Nurse today this shift.
[2020-01-18 04:00] VITALS: BP 129/94
[2020-01-18 06:33] LABS: BASOPHILS 0.4 % (0-2); EOSINOPHILS 2.4 % (0-7); HEMATOCRIT 29.5 % (42.0-54.0); HEMOGLOBIN 9.9 g/dL (13.5-17.5); IMMATURE GRANULOCYTES 0.6 % (0-5); LYMPHOCYTES 15.1 % (15-50); MCH 32.5 pg (26.0-34.0); MCHC 33.6 g/dL (31.0-37.0); MCV 96.7 fL (80.0-100.0); MEAN PLATELET VOLUME 10.7 fL (7.4-10.4); MONOCYTES 10.7 % (2-11); NEUTROPHILS 70.8 % (40-80); PLATELET COUNT 298 10x3/uL (130-400); RBC 3.05 10x6/uL (4.20-6.10); RDW 13.6 % (11.5-14.5); WBC 11.2 10x3/uL (4.8-10.8)
[2020-01-18 06:50] LABS: ANION GAP 13.4 mmol/L (8-16); CALCIUM 8.3 mg/dL (8.5-10.1); CARBON DIOXIDE 23.5 mmol/L (21.0-32.0); CREATININE - SERUM 2.7 mg/dL (0.6-1.3); PHOSPHOROUS 4.2 mg/dL (2.5-4.9); POTASSIUM - SERUM 3.9 mmol/L (3.5-5.1); VANCOMYCIN - RANDOM 20.1 ug/mL (10.0-20.0)
[2020-01-18 09:34] VITALS: BP 143/81
[2020-01-18 13:32] VITALS: BP 129/82
[2020-01-18] MEDS ORDERED: BETAPACE 120 M120 MG PO (15:20)
[2020-01-18] MEDS ORDERED: SODIUM BICARBO650 MG PO (15:24)
[2020-01-18] MEDS ORDERED: FLOMAX0.4 MG PO ×2 (15:25→15:26)
[2020-01-18] MEDS ORDERED: CLEOCIN HCL300 MG PO (15:32)
--- NOTE | 2020-01-18 17:53 | NUR ---
IV DISCONTINUED AND VERBALIZED UNDERSTANDING OF DISCHARGE INSTRUCTIONS. DRESSING TO LEFT KNEE CHANGED PRIOR TO DISCHARGE. STABEL AT TIME OF DISCHARGE.
--- NOTE | 2020-01-20 07:56 | MORECARE ---
CASE MANAGEMENT DISCHARGE SUMMARY PATIENT: DARLING BARRAGAN UNIT: [id number] ADM DATE: 01/08/20 AGE: 69 : 48 SEX: M ROOM/BED: D.2237 AUTHOR: REFUGIODOC PHYSICIAN: REFERRING PHYSICIAN: GUILLERMINA CABAN DO DATE OF SERVICE: 01/20/20 Discharge Plan Patient Name: DARLING BARRAGAN Facility: [facility]:[place] : 1950 Planned Disposition: Home Anticipated Discharge Date: Discharge Date: 01/18/2020 Expected LOS: Initial Reviewer: [email or web address] Initial Review Date: 01/08/2020 Generated: 01/20/20 8:56 am Comments DCP- Discharge Planning Updated by [id number]: Marisela Keating on 01/17/20 11:[address] Patient Name: DARLING BARRAGAN Admission Status: Elective Accout number: [id number] Admission Date: 01-08-2020 : 1950 Admission Diagnosis:OTHER INFECTIVE BURSITIS, LEFT KNEE Attending: GUILLERMINA CABAN Current LOS: 9 Anticipated DC Date: Planned Disposition: Home Primary Insurance: MEDICARE A & B Discharge Planning Comments: CM MET WITH PATIENT AND FAMILY, ANTICIPATE DC TOMORROW. JUAQUIN AND IMM SIGNED. FAXED REFERRAL TO [facility] , THEY WILL GET PATIENT ON SCHEDULE FOR MONDAY. PLEASE FAX DC TO [facility]. [facility] BROCHURE GIVEN TO PATIENT WITH PHONE NUMBER LISTED. CM TO FOLLOW AND ASSIST NEEDED. Graphic Technician: Marisela Keating DCP- Discharge Planning Updated by [email or web address]: Marisela Keating on 01/13/20 1:[address] Patient Name: DARLING BARRAGAN Admission Status: Elective Accout number: [id number] Admission Date: 01-08-2020 : 1950 Admission Diagnosis:OTHER INFECTIVE BURSITIS, LEFT KNEE Attending: GUILLERMINA CABAN Current LOS: 5 Anticipated DC Date: Planned Disposition: Home Primary Insurance: MEDICARE A & B Discharge Planning Comments: CM met with patient at bedside after explaining CM role and obtaining verbal consent. CM discussed availability / needs of home health, REHAB and medical equipment. PATIENT DENIES ANY DISCHARGE NEEDS AT THIS TIME. IF PATIENT NEEDS TO HAVE HH THEN I WILL SET IT UP CLOSER TO TIME FOR DC. CM TO FOLLOW AND ASSIST NEEDED. Graphic Technician: Marislea Keating DCPIA - Discharge Planning Initial Assessment Updated by [email or web address]: Marisela Keating on 01/13/20 2:12 pm * Is the patient Alert and Oriented? Yes * PCP BURDICK * ADLs Independent * Equipment None * Verbal permission to speak to the caregivers and representatives has been obtained from the patient. No * Community resources currently utilized None * Additional services required to return to the preadmission environment? No * Can the patient safely return to the preadmission environment? Yes * Has this patient been hospitalized within the prior 30 days at any hospital? No Coverage Notice Reviewer: [id number] Ishmael Keating Notice Issued Date-Time: 01/17/2020 12:54 Notice Type: IM Discharge Notice Notice Delivered To: Patient Relationship to Patient: Log Marker Name: Delivery Method: HAND - Hand Delivered Rayna Days: Prior Verbal Notification: Recipient Understood Notice: Yes Recipient Signature: Yes Med Rec Note Co-signed by Attending: Coverage Notice Comment: Reviewer: [email or web address] Ishmael Keating Notice Issued Date-Time: 01/17/2020 12:54 Notice Type: Patient Choice Letter Notice Delivered To: Patient Relationship to Patient: Log Marker Name: Delivery Method: HAND - Hand Delivered Rayna Days: Prior Verbal Notification: Recipient Understood Notice: Yes Recipient Signature: Yes Med Rec Note Co-signed by Attending: Coverage Notice Comment: JUAQUIN GRIGGS Last DP export: 01/17/20 11:58 a Patient Name: DARLING BARRAGAN Page [phone] at 0756 All edits/amendments must be made on the electronic document DICTATION DATE: 01/20/20 0756 SNUFF DRIER: CRIS 01/20/20 0756 RPT#: [id number] DC DATE:01/18/20 STATUS: DIS IN [facility] [address] [place] [address] END OF REPORT
== END 2020-01-18 17:55 | disposition home health service (06) | DRG 853 ==
LOC: D.MS 10:47
PROVIDERS: Family Medicine Adult Medicine; Internal Medicine Nephrology; Orthopaedic Surgery; ADMIT Family Medicine; ATTEND Family Medicine
PROC: 0JBP0ZZ Excision of Left Lower Leg Subcutaneous Tissue and Fascia, Open Approach (ICD-10-PCS; principal; 2020-01-09 13:00)
PROC: 0S9D0ZZ Drainage of Left Knee Joint, Open Approach (ICD-10-PCS; 2020-01-09 13:00)
PROC: 0JQP0ZZ Repair Left Lower Leg Subcutaneous Tissue and Fascia, Open Approach (ICD-10-PCS; 2020-01-11)
PROC: 0JBP0ZZ Excision of Left Lower Leg Subcutaneous Tissue and Fascia, Open Approach (ICD-10-PCS; 2020-01-11)
DX: A41.9 Sepsis, unspecified organism (principal); N17.0 Acute kidney failure with tubular necrosis; L03.116 Cellulitis of left lower limb; I48.20 Chronic atrial fibrillation, unspecified; D62 Acute posthemorrhagic anemia; E87.1 Hypo-osmolality and hyponatremia; M71.162 Other infective bursitis, left knee; E87.6 Hypokalemia; Z79.01 Long term (current) use of anticoagulants; I10 Essential (primary) hypertension; I34.0 Nonrheumatic mitral (valve) insufficiency

== ENCOUNTER 2020-01-21 10:21 | Emergency (ER) | payer MEDICARE, OTHER ==
[~2020-01-21] VITALS: Ht 180.3 cm; Wt 122.7 kg
[~2020-01-21 10:21] MED LIST: BETAPACE 120 M120 MG PO; CLEOCIN HCL300 MG PO; COZAAR25 MG PO; FLOMAX0.4 MG PO; K-TAB10 MEQ PO; LASIX40 MG PO; SODIUM BICARBO650 MG PO; XARELTO20 MG PO
[2020-01-21 10:33] VITALS: Ht 180.3 cm; Wt 122.7 kg
[2020-01-21 11:00] LABS: BASOPHILS 0.8 % (0-2); EOSINOPHILS 2.8 % (0-7); HEMATOCRIT 34.1 % (42.0-54.0); HEMOGLOBIN 11.4 g/dL (13.5-17.5); IMMATURE GRANULOCYTES 0.3 % (0-5); LYMPHOCYTES 18.4 % (15-50); MCH 32.5 pg (26.0-34.0); MCHC 33.4 g/dL (31.0-37.0); MCV 97.2 fL (80.0-100.0); MEAN PLATELET VOLUME 10.6 fL (7.4-10.4); MONOCYTES 9.4 % (2-11); NEUTROPHILS 68.3 % (40-80); PLATELET COUNT 347 10x3/uL (130-400); RBC 3.51 10x6/uL (4.20-6.10); RDW 13.3 % (11.5-14.5)
[2020-01-21 11:20] LABS: APTT 41.6 SECONDS (22.8-39.4); INR 1.4 (0.85-1.17)
[2020-01-21 11:27] LABS: ANION GAP 20.8 mmol/L (8-16); CALCIUM 8.4 mg/dL (8.5-10.1); CARBON DIOXIDE 18.3 mmol/L (21.0-32.0); CREATININE - SERUM 2.7 mg/dL (0.6-1.3); POTASSIUM - SERUM 4.1 mmol/L (3.5-5.1)
[2020-01-21 11:32] LABS: BILIRUBIN NEGATIVE (NEGATIVE); KETONE NEGATIVE (NEGATIVE); NITRITE NEGATIVE (NEGATIVE); UROBILINOGEN NORMAL (NORMAL)
[2020-01-21 11:33] LABS: ALBUMIN 2.7 g/dL (3.4-5.0); BILIRUBIN - TOTAL 0.46 mg/dL (0.2-1.3); PROTEIN - SERUM 6.9 g/dL (6.4-8.2)
[2020-01-21 11:33] LABS: BACTERIA NONE SEEN /hpf (NONE SEEN); EPITHELIAL CELLS NSEEN /hpf (0-5); RED CELLS - URINE NONE SEEN /hpf (0-5); WHITE CELLS - URINE OCC /hpf (0-5)
[2020-01-21 13:24] VITALS: BP 144/92
== END 2020-01-22 13:24 | disposition home or self-care (01) ==
LOC: D.ER 10:21
PROVIDERS: Family Medicine
DX: R31.9 Hematuria, unspecified (principal); D64.9 Anemia, unspecified; N18.9 Chronic kidney disease, unspecified; D72.829 Elevated white blood cell count, unspecified; I48.91 Unspecified atrial fibrillation

== ENCOUNTER 2020-02-06 05:16 | Day surgery (SDC) | payer MEDICARE, OTHER ==
[~2020-02-06] VITALS: Ht 180.3 cm; Wt 122.9 kg
[~2020-02-06 05:16] MED LIST changes: +COLACE100 MG PO; +KRILL OIL 1,001 EAC1 PO
[2020-02-06 05:41] LABS: HEMATOCRIT 33.4 % (42.0-54.0); HEMOGLOBIN 11.4 g/dL (13.5-17.5); MCH 31.5 pg (26.0-34.0); MCHC 34.1 g/dL (31.0-37.0); MCV 92.3 fL (80.0-100.0); MEAN PLATELET VOLUME 10.5 fL (7.4-10.4); RBC 3.62 10x6/uL (4.20-6.10); RDW 12.8 % (11.5-14.5); WBC 9.1 10x3/uL (4.8-10.8)
[2020-02-06 05:53] LABS: APTT 32.7 SECONDS (22.8-39.4); INR 1.15 (0.85-1.17); PROTIME 14.6 SECONDS (11.6-15.0)
[2020-02-06] MEDS ORDERED: COENZYME Q10200 MG (06:07)
[2020-02-06 06:09] LABS: ANION GAP 16.5 mmol/L (8-16); CARBON DIOXIDE 22.9 mmol/L (21.0-32.0); CREATININE - SERUM 1.7 mg/dL (0.6-1.3); POTASSIUM - SERUM 3.4 mmol/L (3.5-5.1)
[2020-02-06 06:35] VITALS: BP 137/94; Ht 180.3 cm; Wt 122.9 kg
--- NOTE | 2020-02-06 11:59 | NUR ---
IV D/C'D WITH CANNULA INTACT, PRESSURE HELD, AND DRSG PLACED. DISCHARGE INSTRUCTIONS GIVEN AND BOTH PT AND SPOUSE VERBALIZED AN UNDERSTANDING. OPERATIVE SITE IS UNCHANGED. PT DISCHARGED IN STABLE CONDITION AND WITHOUT C/O
--- NOTE | 2020-02-11 14:56 | OP ---
PATIENT NAME: DARLING LOPEZ MEDICAL RECORD: [id number] :[birth year] [facility] DATE: SURGEON: AMOR FROST MD DATE OF OPERATION: 02/06/2020 PREOPERATIVE DIAGNOSIS: Septic prepatellar bursitis, left knee, status post incision and drainage. POSTOPERATIVE DIAGNOSIS: Septic prepatellar bursitis, left knee, status post incision and drainage. PROCEDURE PERFORMED: 1. Incision and debridement of left knee (skin and subcutaneous tissue). 2. Placement of Kerecis xenograft. 3. Placement of wound VAC, left knee (less than 50 cm-squared). INDICATIONS FOR THE PROCEDURE: Mr. Lopez is a 69-year-old male with history of a septic prepatellar bursitis, left knee. He had extensive involvement of the tissues over the anterior knee and once debridement was complete, he was left with an area over the patella open for secondary healing. We have been performing dressing changes at home and the tissues are improving, but he still has two small wounds over the anterior knee. A decision was made to return to the operating room for placement of Kerecis xenograft. Risks, benefits and alternatives of surgery were discussed with the patient and consent was obtained. DESCRIPTION OF THE PROCEDURE: The patient was met in the holding area where his identity and confirmation of procedure was performed. The left lower extremity was marked. He was taken to the operating room where he was placed supine on the operating room table and anesthesia was administered. The left lower extremity was prepped and draped in a sterile fashion. The patient received preoperative antibiotics and a timeout was performed before initiating the case. On initiation of the case, the I&D of the wounds was completed involving the skin and subcutaneous tissues. Forceps and scalpel were used for debridement of fibrinous tissue from the wound bed and around the edges. The distal wound measured 3 cm x 2 cm and the proximal wound was 1.5 cm in diameter. These were then irrigated thoroughly with saline. Once we were pleased with our wound debridement, we then proceeded with placement of the Kerecis xenograft. The graft was hydrated and then meshed. It was then cut to the size of our wounds and stitches were placed with a 4-0 Monocryl. A Prevena plus wound VAC was then placed over these to complete our procedure. A sterile dressing was placed over the leg. The patient was turned back over to anesthesia. He was awakened, extubated, and taken to recovery room in stable condition. POSTOPERATIVE PLAN: The patient is going to return home with his family today. He can weightbear as tolerated on the left leg. We will plan to see him back in clinic on Monday for wound check and VAC removal. ANESTHESIA: General LMA. COMPLICATIONS: None. ESTIMATED BLOOD LOSS: 5 mL. TRANSINT:[id number] Voice Confirmation ID: [id number] DOCUMENT ID: [id number] OPERATIVE REPORT [id number] DARLING LOPEZ BRENT M MD at 1456 CC: [id number] DICTATION DATE: 02/06/20 0938 PATIENT FINANCIAL REPRESENTATIVE: 02/06/20 1036 [facility] 02/06/20 [place] [id number] [place] [address]
== END 2020-02-06 10:55 | disposition home or self-care (01) ==
LOC: D.OPS 05:16 → D.PAN 07:30 → D.OPS 07:30
PROVIDERS: Anesthesiology; ATTEND Orthopaedic Surgery
DX: M70.42 Prepatellar bursitis, left knee (principal); M25.562 Pain in left knee; E78.5 Hyperlipidemia, unspecified; E66.9 Obesity, unspecified; I48.91 Unspecified atrial fibrillation

== ENCOUNTER → 2020-07-30 09:55 | Outpatient (CLI) | payer MEDICARE, OTHER ==
[2020-02-06 06:35] VITALS: BMI 37.8
[~2020-07-30 09:55] MED LIST changes: +COENZYME Q10200 MG
--- NOTE | 2020-08-03 08:09 | EC ---
PATIENT:DARLING BARRAGAN DATE OF SERVICE: 07/30/20 SEX: M MEDICAL RECORD: [id number] DATE OF : [birth year] LOCATION:[facility], [facility] AGE OF PATIENT: 69 ADMISSION DATE: 07/30/20 REFERRING PHYSICIAN: INTERPRETING PHYSICIAN: JANA PUGH MD ECHOCARDIOGRAM REPORT ECHO CHARGES 4 ECHO COMPLETE Date: 07/30/20 CLINICAL DIAGNOSIS: ASSESS MITRAL REGURG HX OF AFIB/HTN ECHOCARDIOGRAPHIC MEASUREMENTS (adult normal given) AC root (d.<3.7cm) 4.1 cm LV Septum d (<1.2 cm> 1.2 cm Valve Excursion 1.9 cm LV Septum (systole) 1.6 cm Left Atria (s.<4.0cm> 5.3 cm LVPW d(<1.2cm) 1.5 cm RV (d.<2.3cm) 4.8 cm LVPW (sytole) 1.7 cm LV diastole(<5.6CM) 5.4 cm MV E-F(>70mm/sec) cm LV systole 4.1 cm LVOT Diameter 2.2 cm MV exc.(>10mm) 1.0 cm Est.ejection fraction (50-75%) % DOPPLER: LVIT cm/sec A cm/sec E 99.0 cm/sec LA cm/sec RVSP 36 mmHg LVOT 80 cm/sec AOP1/2T m/s Asc. Ao 108 cm/sec RVOT cm/sec RA cm/sec PA cm/sec AV Gradient Peak 4.70 mmHg AV Mean 2.55 mmHg AV Area 3.5 cm MV Gradient Peak 5.26 mmHg MV Mean 2.21 mmHg MV Area cm COMMENTS: [employer]: 2 ANTONIO DICKERSON Therapeutic Specialist: 3 Dr. Maldonado TAPE# PACS Pericardial Effusion N DATE OF SERVICE: Adequate 2D, color-flow imaging, spectral Doppler, and M-Mode. FINDINGS: Mild LVH. LV internal dimension is normal. Wall motion is normal. EF is greater than or equal to 55%. Aortic valve sclerosis without stenosis by Doppler interrogation. Left atrium is dilated at 5.3 cm. Mitral valve shows no prolapse. Mild MR. Right side is grossly normal. Mild TR. TRANSINT:[id number] Voice Confirmation ID: [id number] DOCUMENT ID: [id number] ECHOCARDIOGRAM REPORT [id number] LAURELDARLING GARCIA GREGORY A MD at 0809 CC: [id number] DICTATION DATE: 07/31/2033 SILVICULTURE TEACHER: 07/31/202000 [facility] CLI 07/30/20 [facility] [address] [place] [address]
== END | disposition home or self-care (01) ==
LOC: D.HCCECHO 09:55
PROVIDERS: ATTEND Internal Medicine Interventional Cardiology
DX: I34.0 Nonrheumatic mitral (valve) insufficiency (principal)